=== PATIENT | male | born 1985 | race African-American/Black ===

== ENCOUNTER 2024-12-07 08:23 | Emergency (ER) | payer MEDICAID ==
[~2024-12-07] VITALS: Ht 175.3 cm; Wt 102.0 kg
[2024-12-07 08:29] VITALS: TEMP 36.8; O2SAT 96
[2024-12-07 09:08] VITALS: BP 149/102; PULSE 85; RESP 18
[2024-12-07] MEDS: KETOROLAC 15MG/ML VIAL IM ONE (09:08)
[2024-12-07] MEDS: HYDROCODONE/ACETAMINOPHEN 7.5/325MG TABLET PO ONE (09:08)
[2024-12-07] MEDS: ACETAMINOPHEN 325MG TABLET PO ONE (09:09)
[2024-12-07] MEDS: LIDOCAINE 5% PATCH TOP ONE (09:09)
[2024-12-07] MEDS ORDERED: CYCL10TA21 MT (09:38)
[2024-12-07] MEDS ORDERED: LIDO1ADH82 TOP (09:38)
== END 2024-12-07 10:20 | disposition home or self-care (01) ==
LOC: ER 08:23
DX: M54.9 Dorsalgia, unspecified (principal); E11.9 Type 2 diabetes mellitus without complications
CPT/HCPCS: 96372; 99284; J1885; Z7610

== ENCOUNTER 2025-03-08 11:00 | Emergency (ER) | payer MEDICAID ==
[~2025-03-08] VITALS: Ht 180.3 cm; Wt 100.0 kg
[~2025-03-08 11:00] MED LIST: CYCL10TA21 MT; LIDO1ADH82 TOP
[2025-03-08 11:10] VITALS: O2SAT 99
[2025-03-08 11:18] VITALS: BP 137/53; PULSE 80; RESP 14; TEMP 36.9; O2SAT 99
[2025-03-08] MEDS: ACETAMINOPHEN 325MG TABLET PO ONE (12:35)
[2025-03-08] MEDS ORDERED: ACET-2708 MT (12:54)
== END 2025-03-08 13:52 | disposition home or self-care (01) ==
LOC: ER 11:00
DX: R51.9 Headache, unspecified (principal); E11.9 Type 2 diabetes mellitus without complications; Z79.899 Other long term (current) drug therapy
CPT/HCPCS: 71045; 99283